=== PATIENT | male | born 1950 | race Caucasian/White ===

== ENCOUNTER 2023-07-14 07:49 | Emergency (ER) | payer OTHER ==
[~2023-07-14] VITALS: Ht 177.8 cm; Wt 95.0 kg
[~2023-07-14 07:49] MED LIST: CLEOCIN HC150 MG/CAP PO
[2023-07-14] MEDS ORDERED: CLEOCIN HCL300 MG PO (08:46)
[2023-07-14 08:53] VITALS: BP 143/74; PULSE 96; TEMP 98.6
== END 2023-07-14 08:53 | disposition home or self-care (01) ==
LOC: COL.ER 07:49
DX: L03.115 Cellulitis of right lower limb (principal); L29.9 Pruritus, unspecified; R53.83 Other fatigue; R11.2 Nausea with vomiting, unspecified; R19.7 Diarrhea, unspecified; R53.1 Weakness; R20.0 Anesthesia of skin; T36.8X5A Adverse effect of other systemic antibiotics, initial encounter; F17.200 Nicotine dependence, unspecified, uncomplicated; Z88.0 Allergy status to penicillin